=== PATIENT | male | born 1950 | race American Indian/Alaskan Native ===

== ENCOUNTER 2017-03-29 09:16 | Emergency (ER) | payer MEDICARE ==
--- NOTE | 2017-03-29 10:34 | Cat Scan Report ---
CT HEAD WITHOUT CONTRAST: 03/29/17 10:11 CLINICAL: Headache. TECHNIQUE: 2.5-mm noncontrast scans. COMPARISON:None FINDINGS: The ventricles and sulci are normal for age. No abnormal density. No mass or mass effect. No hemorrhage, edema or extra-axial collection. The sinuses and mastoids are clear. Normal orbits and soft tissues. The calvarium and skull base are intact. IMPRESSION: Normal study.
[2017-03-29 11:08] LABS: Basophils % (Auto) 0.6 % (0.0-1.8); Eosinophils % (Auto) 3.1 % (0.0-4.3); Hematocrit 47.6 % (35.5-45.6); Hemoglobin 16.1 gm/dl (11.8-15.2); Mean Corpuscular HGB Conc 34 % (32-34); Mean Corpuscular Hemoglobin 31 pg (28-32); Mean Corpuscular Volume 91 fl (84-94); Platelet Count 186 K/mm3 (140-440); Red Blood Count 5.23 M/mm3 (3.65-5.03); Red Cell Distribution Width 13.9 % (13.2-15.2); White Blood Count 6.4 K/mm3 (4.5-11.0)
[2017-03-29 11:11] LABS: Anion Gap 16 mmol/L; BUN/Creatinine Ratio 11.42; Blood Urea Nitrogen 16 mg/dL (9-20); Calcium 8.5 mg/dL (8.4-10.2); Carbon Dioxide 25 mmol/L (22-30); Chloride 102.1 mmol/L (98-107); Glucose 84 mg/dL (75-100); Potassium 4.2 mmol/L (3.6-5.0); Sodium 139 mmol/L (137-145)
--- NOTE | 2017-03-29 14:31 | Emergency Department Report ---
ED Headache HPI - General Chief Complaint: Headache Stated Complaint: HEADACHE Time Seen by Provider: 03/29/17 14:00 - History of Present Illness Initial Comments: 66-year-old male past medical history none presents with complaint of 2 weeks of intermittent right sided throbbing headache. States that his skin becomes very sensitive with headaches. Denies photophobia or phonophobia nausea fever chills abdominal pain. Patient is awake alert and oriented 3 fully lucid. Denies any blurry vision denies any floaters denies any aura preceding headache. Headache last for a few minutes at a time to a few hours and is intermittently dull and sharp. Patient denies any head trauma. Denies any sore throat. Does state that he had a dental cleaning 2 weeks ago. Denies any drainage from ear. States that the pain seems to radiate from the anterior aspect of his right ear throughout his face especially towards his superior anterior scalp region. Denies smoking drinking or drug use. Patient is ambulatory. Denies any paresthesias of the face. Patient is visibly ranging all of his extremities. Timing/Duration: 1 week (2 weeks), waxing and waning Quality: mild Head Injury Location: temporal Recent Head Trauma: occasional headaches Associated Symptoms: denies symptoms Allergies/Adverse Reactions: Allergies No Known Allergies Allergy (Unverified 11/01/15 16:24) Home Medications: Ambulatory Orders Azithromycin [Zithromax Z-BENJAMÍN] 250 mg PO DAILY #6 tablet 11/02/15 Fluticasone [Flonase] 1 spray NS QDAY #1 bottle 11/02/15 guaiFENesin/CODEINE [Robitussin AC] 5 ml PO Q6HR PRN #120 oral.liqd 11/02/15 Gabapentin [Neurontin] 100 mg PO Q8HR PRN #60 capsule 03/29/17 Naproxen [Naprosyn TAB] 375 mg PO BID PRN #20 tablet 03/29/17 Prednisone [predniSONE 5 mg (6-Day Pack, 21 Tabs)] 5 mg PO .TAPER #1 tab.ds.pk 03/29/17 ED Review of Systems ROS: Stated complaint: HEADACHE Other details as noted in HPI Constitutional: denies: chills, fever Eyes: denies: eye pain, eye discharge, vision change ENT: denies: ear pain, throat pain Respiratory: denies: cough, shortness of breath, wheezing Cardiovascular: denies: chest pain, palpitations Endocrine: no symptoms reported Gastrointestinal: denies: abdominal pain, nausea, diarrhea Genitourinary: denies: urgency, dysuria Musculoskeletal: denies: back pain, joint swelling, arthralgia Skin: denies: rash, lesions Neurological: headache. denies: weakness, paresthesias Psychiatric: denies: anxiety, depression Hematological/Lymphatic: denies: easy bleeding, easy bruising ED Past Medical Hx - Past Medical History Previous Medical History?: No - Surgical History Past Surgical History?: No - Social History Smoking Status: Never Smoker Substance Use Type: Alcohol - Medications Home Medications: Home Medications Medication Instructions Recorded Confirmed Last Taken Type Azithromycin [Zithromax Z-BENJAMÍN] 250 mg PO DAILY #6 tablet 11/02/15 Unknown Rx Fluticasone [Flonase] 1 spray NS QDAY #1 bottle 11/02/15 Unknown Rx guaiFENesin/CODEINE [Robitussin AC] 5 ml PO Q6HR PRN #120 oral.liqd 11/02/15 Unknown Rx Gabapentin [Neurontin] 100 mg PO Q8HR PRN #60 capsule 03/29/17 Unknown Rx Naproxen [Naprosyn TAB] 375 mg PO BID PRN #20 tablet 03/29/17 Unknown Rx Prednisone [predniSONE 5 mg (6-Day 5 mg PO .TAPER #1 tab.ds.pk 03/29/17 Unknown Rx Pack, 21 Tabs)] ED Physical Exam - General Limitations: No Limitations General appearance: alert, in no apparent distress - Head Head exam: Present: atraumatic, normocephalic - Eye Eye exam: Present: normal appearance, PERRL, EOMI - ENT ENT exam: Present: mucous membranes moist - Neck Neck exam: Present: normal inspection, full ROM - Respiratory Respiratory exam: Present: normal lung sounds bilaterally. Absent: respiratory distress - Cardiovascular Cardiovascular Exam: Present: regular rate, normal rhythm. Absent: systolic murmur, diastolic murmur, rubs, gallop - GI/Abdominal GI/Abdominal exam: Present: soft, normal bowel sounds - Rectal Rectal exam: Present: deferred - Extremities Exam Extremities exam: Present: normal inspection - Back Exam Back exam: Present: normal inspection - Neurological Exam Neurological exam: Present: alert, oriented X3, CN II-XII intact, normal gait - Expanded Neurological Exam Expanded Patient oriented to: Present: person, place, time Cranial nerves: EOM's Intact: Normal, Nystagmus: Normal, Facial Sensation: Normal (facial sensation to dull and sharp objects intact side, facial movements including smiling flexing of forehead, eyebrow movement frowning puffing out cheeks intact, extraocular movements intact patient is able to open and close his eyes without difficulty no ptosis) Cerebellar function: Finger to Nose: Normal, Heel to Dejesus: Normal, Romberg: Normal Sensory exam: Upper Extremity Light Touch: Normal, Lower Extremity Light Touch: Normal Motor strength exam: RUE: 5, LUE: 5, RLE: 5, LLE: 5 DTR: tricep (R): 3+, tricep (L): 3+, knee (R): 3+, knee (L): 3+ Best Eye Response (Dung): (4) open spontaneously Best Motor Response (Dung): (6) obeys commands Best Verbal Response ([place]): (5) oriented Dung Total: 15 - Psychiatric Psychiatric exam: Present: normal affect, normal mood - Skin Skin exam: Present: warm, dry, intact, normal color. Absent: rash ED Course Vital Signs 03/29/17 03/29/17 09:34 09:44 Temperature 97.8 F 97.8 F Pulse Rate 60 70 Respiratory 18 16 Rate Blood Pressure 123/83 Blood Pressure 123/83 [Right] O2 Sat by Pulse 100 100 Oximetry ED Medical Decision Making - Lab Data Result diagrams: 03/29/17 10:26 03/29/17 10:26 - Medical Decision Making A/P: Migraine headache, possible trigeminal neuralgia 1-case discussed with Dr. Calderon 2-wuill give patient trial of prednisone Dosepak and gabapentin when necessary for pain 3-follow up with primary care and neurology 4-CT head unremarkable, labs unremarkable 5- f/u with PMD and neurology [email or web address] 4- pt has no CN deficits, 1-12 intact on exam, strength 5/5 UE, LE, pt ambulatory. Critical care attestation.: If time is entered above; I have spent that time in minutes in the direct care of this critically ill patient, excluding procedure time. ED Disposition Clinical Impression: Trigeminal nerve disorder, unspecified Headache Qualifiers: Headache type: unspecified Headache chronicity pattern: episodic headache Intractability: not intractable Qualified Code(s): R51 - Headache Disposition: TO HOME OR SELFCARE Is pt being admited?: No Does the pt Need Aspirin: No Condition: Stable Instructions: Migraine Headache (ED), Trigeminal Neuralgia (ED) Prescriptions: Gabapentin [Neurontin] 100 mg PO Q8HR PRN #60 capsule PRN Reason: Headache Naproxen [Naprosyn TAB] 375 mg PO BID PRN #20 tablet PRN Reason: Headache Prednisone [predniSONE 5 mg (6-Day Pack, 21 Tabs)] 5 mg PO .TAPER #1 tab.ds.pk Referrals: [facility] [Provider Group] - 3-5 Days [facility] [Outside] - 3-5 Days Time of Disposition: 14:44
[2017-03-29] MEDS ORDERED: REGLAN PO ONE (14:32)
[2017-03-29] MEDS ORDERED: MOTRIN PO ONE (14:32)
[2017-03-29 15:22] VITALS: BP 152/92
== END 2017-03-29 15:22 | disposition home or self-care (01) ==
LOC: ED 09:16
DX: G50.8 Other disorders of trigeminal nerve (principal); R51 Headache
CPT/HCPCS: 36415; 70450; 80048; 82962; 84484; 85025

== ENCOUNTER 2017-04-15 12:03 | Observation (INO) | payer MEDICARE ==
[2017-04-15] MEDS ORDERED: NACL BACTERIOSTATIC INFILTRATI ONE (12:28)
--- NOTE | 2017-04-15 12:30 | Anesthesia Consultation ---
Anesthesia Consult and Med Hx Date of service: 04/15/17 - Airway Anesthetic Teeth Evaluation: Partials ROM Head & Neck: Adequate Mental/Hyoid Distance: Adequate Mallampati Class: Class II Intubation Access Assessment: Probably Good - Pulmonary Exam CTA: Yes - Cardiac Exam Cardiac Exam: RRR - Pre-Operative Health Status ASA Pre-Surgery Classification: ASA2 Proposed Anesthetic Plan: General - Pulmonary Hx Smoking: No Hx Sleep Apnea: No (KAYLA PRE SCREEN LOW RISK) - Cardiovascular System Hx Hypertension: No - Other Systems Hx Cancer: No - Additional Comments Anesthesia Medical History Comments: elevated PSA
--- NOTE | 2017-04-15 12:30 | Anesthesia Day of Surgery ---
Anesthesia Day of Surgery - Day of Surgery Patient Examined: Yes Patient H&P Reviewed: Yes Patient is NPO: Yes
[2017-04-15] MEDS ORDERED: PERCOCET 5/325 PO PRN (12:31)
[2017-04-15] MEDS ORDERED: ZOFRAN IV PRN (12:31)
[2017-04-15] MEDS ORDERED: ANCEF/STERILE WATER 2 GM/20 ML IV NR (13:00)
[2017-04-15] MEDS ORDERED: LACTATED RINGERS 1,000 ML IV SCH (13:00)
[2017-04-15] MEDS ORDERED: VERSED IV NR (13:00)
[2017-04-15] MEDS ORDERED: PEPCID PO NR (13:00)
[2017-04-15] MEDS ORDERED: DIPRIVAN 10 MG/ML IV ONE (13:26)
[2017-04-15] MEDS ORDERED: SUBLIMAZE ONE (13:27)
[2017-04-15] MEDS ORDERED: XYLOCAINE MPF 2% ONE (13:27)
--- NOTE | 2017-04-15 15:00 | Short Stay Summary ---
Short Stay Documentation Date of service: 04/15/17 - History H&P: obtained from office - Allergies and Medications Current Medications: Allergies No Known Allergies Allergy (Verified 04/10/17 10:00) Home Medications Medication Instructions Recorded Confirmed Last Taken Type No Known Home Medications [No 04/10/17 04/10/17 Unknown History Reported Home Medications] Active Medications Cefazolin Sodium (Ancef/Sterile Water 2 Gm/20 Ml) 2 gm IV PREOP NR Stop: 04/15/17 23:59 Famotidine (Pepcid) 20 mg PO PREOP NR Stop: 04/15/17 23:59 Last Admin: 04/15/17 12:45 Dose: 20 mg Hydromorphone HCl (Dilaudid) 0.5 mg IV Q10MIN PRN PRN Reason: Pain , Severe (7-10) Stop: 04/15/17 23:59 Lactated Ringer's (Lactated Ringers) 1,000 mls @ 100 mls/hr IV DIRECT MANISH Last Admin: 04/15/17 12:50 Dose: 100 mls/hr Midazolam HCl (Versed) 2 mg IV PREOP NR Stop: 04/15/17 23:59 Last Admin: 04/15/17 13:20 Dose: 2 mg - Brief post op/procedure progress note Date of procedure: 04/15/17 Pre-op diagnosis: USD Procedure: cysto dviu, brpg Anesthesia: GETA Findings: 2+cm stx; prost adeq open from past TURP, bladder small tics Surgeon: ILSETTE RODRIGUEZ Estimated blood loss: minimal Pathology: none Condition: stable - Hospital course Hospital course: orpacuhome - Disposition Condition at discharge: Good Disposition: DC-01 TO HOME OR SELFCARE Short Stay Discharge Plan Activity: advance as tolerated Diet: advance as tolerated Follow up with: VIKI MILIAN MD [Staff Physician] - 7 Days
[2017-04-15] MEDS ORDERED: ZOFRAN ONE (15:45)
[2017-04-15] MEDS ORDERED: NS IV ONE (15:59)
[2017-04-15] MEDS ORDERED: GARAMYCIN IV ONE (15:59)
--- NOTE | 2017-04-15 16:51 | Post Anesthesia Evaluation ---
- Post Anesthesia Evaluation Patient Participated: Yes Airway Patent: Yes Stable Respiratory Function: Yes Temp > 96.8F: Yes Pain Manageable: Yes Adequeate Hydration: Yes Anesthesia Complications: No
--- NOTE | 2017-04-15 17:03 | Post Operative Note ---
Date of procedure: 04/15/17 Pre-op diagnosis: inc psa abn morgan Post-op diagnosis: same Findings: cysto pus bx Procedure: abn morgan pus bx Anesthesia: GETA Surgeon: VIKI MILIAN Estimated blood loss: minimal Pathology: list (prostate) Specimen disposition: to lab Condition: stable Disposition: PACU
--- NOTE | 2017-04-15 17:05 | Discharge Summary ---
Short Stay Discharge Plan Activity: other (no straining ) Weight Bearing Status: Full Weight Bearing Diet: low fat, low cholesterol, low salt Special Instructions: other (inc fluids ) Durable Medical Equipment Needed Upon Discharge: other (home with wesley f/u in am ) Additional Instructions: ACTIVITY ADVANCE TOLERATED DIET ADVANCE TOLERATED. APPOINTMENT DR MILIAN WANTS TO SEE YOU IN 1 DAYS CALL FOR APPOINTMENT AND ANY QUESTIONS OR CONCERNS RELATED TO TODAY'S PROCEDURE. Follow up with: VIKI MILIAN MD [Staff Physician] - 7 Days Forms: Outpatient Surgery DC Inst.
[2017-04-15] MEDS ORDERED: AMBIEN PO PRN (18:02)
[2017-04-15] MEDS: DILAUDID IV PRN ×2 (18:35→18:50)
[2017-04-15] MEDS ORDERED: ROCEPHIN/NS 1 GM/50 ML 1 GM/50 ML BAG IV SCH (19:00)
[2017-04-15] MEDS: NS 0.45/KCL 20MEQ 20 MEQ/1,000 ML BAG IV SCH (20:58)
--- NOTE | 2017-04-15 22:27 | Operative Report ---
PREOPERATIVE DIAGNOSES: Elevated PSA, significantly abnormal prostate examination. POSTOPERATIVE DIAGNOSES: Elevated PSA, significantly abnormal prostate examination. PROCEDURE: Flexible cystoscopy with transrectal ultrasound guided biopsies of the prostate. SURGEON: Dr. Staples. ANESTHESIA: General. FINDINGS: This is a gentleman, who presented with elevated PSA. He has had a previous biopsy. At this time, his exam was significantly abnormal and asymmetrical. He now presents for biopsy. DESCRIPTION OF PROCEDURE: The patient was brought to the operating room and placed on the operating table. Following induction of anesthesia, placed in lithotomy position, prepped and draped in usual sterile fashion. Flexible cystoscopy showed minimal bilobar hypertrophy with no significant trabeculation. There were no bladder tumors. At this point, the ultrasound probe was placed and excellent visualization of approximately a 46 gram prostate was measured. We obtained six biopsies on the left, 6 on the right. The patient tolerated the procedure well. When the probe was removed, there was small oozing from the biopsy sites. We placed the probe and then a 20-Turkmen [place] . There was no significant bleeding. The patient tolerated the procedure well. The [place] was in place, brought to recovery room, minimally tinged urine, in stable condition. JOB# [id number] KM/JACI
[2017-04-16] MEDS: PERCOCET 5/325 PO PRN ×2 (00:14→07:54)
[2017-04-16] MEDS: NS 0.45/KCL 20MEQ 20 MEQ/1,000 ML BAG IV SCH (06:27)
--- NOTE | 2017-04-16 08:11 | Progress Note ---
Assessment and Plan doing well juan pablo po tiny rash neck no erythema home today check path Subjective Date of service: 04/16/17 Principal diagnosis: abn prostate Objective - Constitutional Vitals: Vital Signs - 12hr 04/15/17 04/16/17 04/16/17 22:15 00:14 00:21 Temperature 97.9 F Pulse Rate 57 L Respiratory 20 20 18 Rate Respiratory 20 Rate [Scrotum] Blood Pressure 107/67 O2 Sat by Pulse 97 Oximetry General appearance: Present: no acute distress - Respiratory Respiratory effort: normal Extremities: no ischemia - Gastrointestinal General gastrointestinal: Present: soft, non-tender
--- NOTE | 2017-04-16 08:13 | Discharge Summary ---
Short Stay Discharge Plan Activity: other (no straining ) Weight Bearing Status: Full Weight Bearing Diet: regular, low salt Additional Instructions: ACTIVITY: NO STRAINING WHEN HAVING A BOWEL MOVEMENT OR WHEN TRYING TO URINATING . DIET : LOW SALT LOW FAT, LOW CHOLESTEROL. ADVANCE TOLERATED. APPOINTMENT: DR MILIAN WANTS TO SEE YOU IN THE AM TO REMOVE ZAMORA ALSO TO BE SEEN IN 7 DAYS FOR FURTHER FOLLOW UP. CALL AND ANY QUESTIONS OR CONCERNS RELATED TO TODAY'S PROCEDURE. Follow up with: VIKI MILIAN MD [Staff Physician] - 7 Days Forms: Outpatient Surgery DC Inst.
--- NOTE | 2017-04-16 08:19 | Ultrasound Report ---
ULTRASOUND-GUIDED INTRAOPERATIVE History: Prostate biopsy. Findings: Endorectal ultrasound guidance was provided by radiology during prostate biopsy by Dr. Staples. 3 ultrasound images were captured. Prostate volume measures 48 cc. Impression: Successful prostate biopsy with endorectal guidance.
[2017-04-16 08:48] VITALS: BP 95/62
--- NOTE | 2017-04-16 09:03 | XRay Report ---
SUPINE KUB: History: Elevated PSA. The abdominal gas pattern is unremarkable. No masses or organomegaly is identified and there is no gross evidence of free air or fluid. No significant soft tissue calcifications are noted. IMPRESSION: Normal study.
[2017-04-16] MEDS ORDERED: ROCEPHIN/NS 1 GM/50 ML 1 GM/50 ML BAG IV ONE (11:00)
[2017-04-16] MEDS ORDERED: BENADRYL PO ONE (11:30)
[2017-04-16] MEDS ORDERED: Fluarix Quad 2017-2018(36 MOS+) IM ONE (12:00)
[2017-04-16] MEDS ORDERED: PNEUMOVAX 23 IM ONE (12:00)
[2017-04-16] MEDS ORDERED: BENADRYL PO PRN (22:00)
== END 2017-04-16 12:08 | disposition home or self-care (01) ==
LOC: OR 12:03 → 3B-SURG 17:59
PROVIDERS: ADMIT Urology; ATTEND Urology
DX: R97.20 Elevated prostate specific antigen [PSA] (principal); Z23 Encounter for immunization; N40.0 Benign prostatic hyperplasia without lower urinary tract symptoms; N52.9 Male erectile dysfunction, unspecified
CPT/HCPCS: 55700; 74000; 76998; 88305; 90686; 90732; 96365; 96375; G0378; J0690; J0696; J1170; J1580; J2250; J2405; J2704; J3010; J7120

== ENCOUNTER 2018-02-10 11:30 | Outpatient (CLI) | payer MEDICARE ==
--- NOTE | 2018-02-10 14:14 | XRay Report ---
ROUTINE CHEST, TWO VIEWS: HISTORY: chest pain. The trachea, heart, mediastinal contour, lung may and bony thorax are unremarkable. IMPRESSION: Unremarkable chest x-ray.
--- NOTE | 2018-02-10 14:15 | XRay Report ---
LEFT SHOULDER: History: Left shoulder pain. Routine views demonstrate normal bony and soft tissue structures with normal joint alignment of the shoulder. IMPRESSION: Unremarkable left shoulder films.
--- NOTE | 2018-02-11 09:03 | Ultrasound Report ---
ULTRASOUND ABDOMEN COMPLETE: TECHNIQUE: Transabdominal ultrasound with color Doppler interrogation. HISTORY: abdominal pain. COMPARISON: none. FINDINGS: LIVER: Normal. BILIARY SYSTEM: Trace sludge is identified in the gallbladder. No shadowing gallstones, wall thickening or surrounding fluid. The CBD measures 3.3 mm. PANCREAS: Normal. SPLEEN: Normal. 9.1 cm. KIDNEYS: Normal. AORTA/IVC: Normal. ASCITES: None. IMPRESSION: Trace sludge in the gallbladder. Otherwise, unremarkable abdominal sonogram.
== END 2018-02-10 11:31 | disposition home or self-care (01) ==
LOC: US 11:30
PROVIDERS: ATTEND Internal Medicine
DX: R10.31 Right lower quadrant pain (principal); R07.89 Other chest pain; M25.512 Pain in left shoulder
CPT/HCPCS: 71046; 76700

== ENCOUNTER 2018-02-17 08:23 | Outpatient (CLI) | payer MEDICARE ==
--- NOTE | 2018-02-18 01:14 | Treadmill Report ---
THALLIUM STRESS TEST LEFT VENTRICLE: Left ventricular chamber size is at the upper limits of normal. Perfusion study demonstrates a small fixed basal inferior defect, worse on the resting study. Gated analysis demonstrates left ventricular systolic function at the lower limits of normal, ejection fraction 50%. CONCLUSION: Small fixed basal inferior defect, consistent with diaphragmatic attenuation artifact. Otherwise, no significant defects identified. Negative study. Clinical correlation recommended. [facility]# [id number] CA/NTS
== END 2018-02-17 08:24 | disposition home or self-care (01) ==
LOC: CARD 08:23
PROVIDERS: ATTEND Internal Medicine
DX: R07.89 Other chest pain (principal)
CPT/HCPCS: 78452; 93017; A9502